=== PATIENT | female | born 1985 | race African-American/Black ===

== ENCOUNTER 2023-12-04 11:12 | Emergency (ER) | payer MEDICAID ==
[~2023-12-04] VITALS: Ht 165.1 cm; Wt 138.6 kg
[2023-12-04 12:03] LABS: Basophils # (auto) 0.1 10 ^3/uL (0-0.2); Eosinophils # (auto) 0.1 10 ^3/uL (0-0.8); Eosinophils % (auto) 0.8 % (0.0-7.0); Lymphocytes # (auto) 1.6 10 ^3/uL (0.4-5.4); Mean Corpuscular Hemoglobin 23.7 pg (28.0-32.0); Monocytes % (auto) 9.1 % (0.0-12.0)
[2023-12-04 12:04] LABS: Urine Bacteria None Seen /hpf (None Seen)
[2023-12-04 12:05] LABS: Basophils % (auto) 0.7 % (0.0-2.0); Hematocrit 33.2 % (36.0-46.0); Hemoglobin 10.5 g/dL (12.2-16.2); Lymphocytes % (auto) 14.5 % (10.0-50.0); Mean Corpuscular Hgb Conc. 31.4 g/dL (32.0-36.0); Mean Corpuscular Volume 75.3 fL (80.0-100.0); Neutrophils # (auto) 8.5 10 ^3/uL (1.6-8.6); Neutrophils % (auto) 74.9 % (37.0-80.0); Red Blood Cells 4.42 10^6/uL (4.0-5.20); White Blood Cell 11.4 10^3/uL (4.4-10.8)
[2023-12-04 12:15] LABS: Chloride 107 mmol/L (98-107); Potassium 3.6 mmol/L (3.5-5.1); Sodium 140 mmol/L (136-145)
[2023-12-04 12:16] LABS: Anion Gap 4 (5-15); Calcium 9.3 mg/dL (8.5-10.1); Carbon Dioxide 29 mmol/L (20-30)
[2023-12-04 12:21] LABS: BUN/Creatinine Ratio 10.1 (10.0-20.0); Blood Urea Nitrogen 7 mg/dL (9-23); Glucose 109 mg/dL (74-106)
[2023-12-04 12:21] LABS: Urine Blood Negative /uL (Negative); Urine Clarity Clear (Clear); Urine Color Yellow (Yellow); Urine Mucus FEW (None Seen); Urine Protein, UAD TRACE (Negative); Urine Specific Gravity 1.029 (1.001-1.035); Urine Urobilinogen 2 mg/dL (Negative); Urine WBC 1 /hpf (0 - 5); Urine pH 5.5 (5.0-9.0)
[2023-12-04] MEDS: SODIUM CHLORIDE 0.9% 1,000 ML IV ONE (15:03)
[2023-12-04] MEDS: HYDROcodone-ACET 5/325MG TAB PO ONE (15:45)
[2023-12-04 16:09] LABS: Albumin 4.2 g/dL (3.2-4.8); Alkaline Phosphatase 72 U/L (46-116); Aspartate Aminotransferase 11 U/L (13-40); Bilirubin, Direct < 0.1 mg/dL (<0.3); Bilirubin, Total 0.3 mg/dL (0.2-1.0); Total Protein 7.4 g/dL (5.7-8.2)
[2023-12-04 16:12] LABS: Alanine Aminotransferase < 9 U/L (7-40)
[2023-12-04 16:39] VITALS: BP 139/87; PULSE 99; RESP 17; TEMP 98.6; O2SAT 97
== END 2023-12-04 16:40 | disposition home or self-care (01) ==
LOC: ER 11:12
DX: D25.9 Leiomyoma of uterus, unspecified (principal); K42.9 Umbilical hernia without obstruction or gangrene; Z86.2 Personal history of diseases of the blood and blood-forming organs and certain disorders involving the immune mechanism
CPT/HCPCS: 36415; 74176; 76856; 80048; 80076; 81001; 81025; 85025; 96360; 99284; J7030